=== PATIENT | female | born 1995 | race Two or more races ===

== ENCOUNTER 2021-06-10 16:18 | Emergency (ER) | payer OTHER ==
[~2021-06-10] VITALS: Ht 167.6 cm; Wt 62.1 kg
--- NOTE | 2021-06-10 16:35 | NUR ---
TO ER BED 4, C/O FEELING FATIGUE AND RAPID HEART RATE, A&OX4, CHANGED TO A GOWN, EMT AT BEDSIDE FOR EKG
--- NOTE | 2021-06-10 17:03 | NUR ---
URINE COLLECTED AND SENT TO LAB
[2021-06-10] MEDS: IV NS 0.9% 1,000 ML BAG IV ONE (17:12)
[2021-06-10 17:21] LABS: BASOPHILS # (AUTO) 0.1 K/uL (0.0-0.2); BASOPHILS % (AUTO) 0.8 % (0.0-2.0); HEMATOCRIT 45 % (33-45); LYMPHOCYTES # (AUTO) 2.9 K/uL (0.8-4.8); LYMPHOCYTES % (AUTO) 30.2 % (20.0-44.0); MEAN CORPUSCULAR HGB CONC 33 g/dl (31.0-36.0); MEAN CORPUSCULAR VOLUME 86 fL (82-100); MONOCYTES # (AUTO) 0.4 K/uL (0.1-1.30); MONOCYTES % (AUTO) 4.3 % (2.0-12.0); NEUTROPHILS # (AUTO) 6.1 K/uL (1.8-8.9); NEUTROPHILS % (AUTO) 63.7 % (43.0-81.0); PLATELET COUNT (AUTO) 325 K/uL (150-450); RED BLOOD CELL COUNT(AUTO) 5.27 MIL/uL (4.0-5.2); WHITE BLOOD COUNT (AUTO) 9.5 K/uL (4.3-11.0)
[2021-06-10 17:31] LABS: CALCIUM, SERUM 9.7 mg/dL (8.5-10.1); CREATININE 0.8 mg/dL (0.6-1.3); POTASSIUM 3.5 mmol/L (3.5-5.1)
[2021-06-10 17:38] LABS: ALBUMIN 4.2 g/dL (3.4-5.0); BILIRUBIN,DIRECT 0.1 mg/dL (0.0-0.2); BILIRUBIN,TOTAL 0.4 mg/dL (0.2-1.0); TOTAL PROTEIN, SERUM 8.7 g/dL (6.4-8.2)
[2021-06-10 17:56] LABS: THYROID STIMULATING HORMONE 0.628 uIU/mL (0.358-3.74)
[2021-06-10 18:27] VITALS: BP 106/70
--- NOTE | 2021-06-10 18:27 | NUR ---
IV removed. Catheter intact and site benign. Pressure and 4x4 applied to site. No bleeding noted.Patient discharged to home in stable condition. Written and verbal after care instructions given. Patient verbalizes understanding of instruction.
== END 2021-06-10 18:27 | disposition home or self-care (01) ==
LOC: ER 16:18
DX: R53.83 Other fatigue (principal); G47.00 Insomnia, unspecified
CPT/HCPCS: 36415; 71045; 80048; 80076; 84443; 84703; 85025; 93005; 96360; 99285; J7030